=== PATIENT | female | born 1985 | race Hispanic/Latino ===

== ENCOUNTER 2022-07-17 08:18 | Emergency (ER) | payer OTHER ==
[2022-07-17] MEDS ORDERED: SODIUM CHLORIDE 0.9% 1000 ML 1,000 ML IV ONE (09:16)
[2022-07-17] MEDS ORDERED: ONDANSETRON 4 MG/2 ML INJ IV ONE (09:17)
[2022-07-17] MEDS ORDERED: MORPHINE 2 MG/1 ML INJ IM ONE (09:17)
--- NOTE | 2022-07-17 09:22 | Emergency Department Report ---
ED General Adult HPI - General Chief complaint: Nausea/Vomiting/Diarrhea Stated complaint: NAUSEA/VOMITING PUI?: No Time Seen by Provider: 07/17/22 09:04 Source: patient, EMS Mode of arrival: Stretcher Limitations: No Limitations - History of Present Illness Initial comments: 37-year-old female brought in by psychiatric facility with concerns of nausea and vomiting and also abdominal discomfort that radiates to the back. According to patient that this started last night. Patient states the abdominal discomfort is a sharp sensation that is constant. Patient denies dysuria. Patient said that she has a history of hypertension, kidney cancer which was removed, anxiety, panic attack, and also seizure which according to patient she is any intake elliptic medication. Patient denies alcohol use. Patient current denies any fever chill night sweat dizziness blurred vision lightheadedness headache tinnitus ear pain runny nose sore throat loss of taste or smell chest pain palpitation short of breath cough diarrhea constipation dysuria myalgia arthralgia new rash and heat or cold intolerance. - Related Data Allergies Allergy/AdvReac Type Severity Reaction Status Date / Time No Known Allergies Allergy Verified 07/17/22 08:22 ED Review of Systems ROS: Stated complaint: NAUSEA/VOMITING Other details as noted in HPI Comment: All other systems reviewed and negative Constitutional: no symptoms reported, see HPI Eyes: as per HPI ENT: as per HPI Respiratory: no symptoms reported, see HPI Cardiovascular: as per HPI Endocrine: no symptoms reported, see HPI Gastrointestinal: abdominal pain, nausea, vomiting. denies: diarrhea, con stipation, hematemesis, melena, hematochezia Genitourinary: as per HPI Musculoskeletal: as per HPI Skin: as per HPI Neurological: as per HPI Psychiatric: as per HPI Hematological/Lymphatic: as per HPI ED Past Medical Hx - Past Medical History Previous Medical History?: Yes Hx Hypertension: Yes Hx Psychiatric Treatment: Yes ED Physical Exam - General Limitations: No Limitations General appearance: alert, in no apparent distress - Head Head exam: Present: atraumatic, normocephalic, normal inspection - Eye Eye exam: Present: normal appearance, PERRL, EOMI Pupils: Present: normal accommodation - ENT ENT exam: Present: normal exam, mucous membranes moist - Neck Neck exam: Present: normal inspection, full ROM - Respiratory Respiratory exam: Present: normal lung sounds bilaterally - Cardiovascular Cardiovascular Exam: Present: regular rate, normal rhythm, normal heart sounds - GI/Abdominal GI/Abdominal exam: Present: soft, normal bowel sounds. Absent: distended, tenderness, guarding, rebound, rigid - Extremities Exam Extremities exam: Present: normal inspection, full ROM, normal capillary refill - Back Exam Back exam: Present: normal inspection, full ROM - Neurological Exam Neurological exam: Present: alert, oriented X3, CN II-XII intact - Psychiatric Psychiatric exam: Present: normal affect, normal mood - Skin Skin exam: Present: warm, dry, intact ED Course Vital Signs 07/17/22 07/17/22 08:19 12:58 Temperature 98.6 F Pulse Rate 73 89 Respiratory 14 18 Rate Blood Pressure 157/90 142/87 [Left] O2 Sat by Pulse 96 99 Oximetry ED Medical Decision Making - Lab Data Result diagrams: 07/17/22 09:22 07/17/22 09:22 Critical care attestation.: If time is entered above; I have spent that time in minutes in the direct care of this critically ill patient, excluding procedure time. ED Disposition Clinical Impression: Generalized abdominal discomfort, Elevated LFTs, Renal cyst, right Disposition: 01 HOME / SELF CARE / HOMELESS Is pt being admited?: No Does the pt Need Aspirin: No Condition: Stable Instructions: Abdominal Pain, Adult, [id number] Time of Disposition: 14:56
[2022-07-17 09:31] LABS: Hematocrit 34.8 % (30.3-42.9); Hemoglobin 11.6 gm/dl (10.1-14.3); Mean Corpuscular HGB Conc 34 % (30-34); Mean Corpuscular Volume 87 fl (79-97); Platelet Count 240 K/mm3 (140-440); Red Blood Count 3.99 M/mm3 (3.65-5.03)
[2022-07-17 09:58] LABS: Alanine Aminotransferase 159 units/L (7-56); Albumin 4.3 g/dL (3.9-5); BUN/Creatinine Ratio 17; Blood Urea Nitrogen 10 mg/dL (7-17); Calcium 9.5 mg/dL (8.4-10.2); Hemolysis Index 3
--- NOTE | 2022-07-17 11:58 | Cat Scan Report ---
CT ABDOMEN AND PELVIS WITH CONTRAST HISTORY: generalized abd pain radiates to back COMPARISON: None TECHNIQUE: Routine abdominal and pelvic CT exam performed following intravenous contrast administrat ion.. All CT scans at this location are performed using CT dose reduction for ALARA by means of autom ated exposure control. FINDINGS: CT ABDOMEN: Lung Bases: No significant abnormality. Liver: No significant abnormality. Biliary: No significant abnormality. Spleen: No significant abnormality. Unenlarged. Pancreas: No significant abnormality. Adrenals: No significant abnormality. Kidneys: There is a cluster of 4 to 5 mm stones in the upper pole of the left kidney with associated dilation of the upper left renal collecting system. There are also some small intrarenal stones in jun th lower poles of the kidneys. Simple 4 cm cyst in the posterior right kidney. Lymphatics: No lymphadenopathy. Vasculature: No significant abnormality. Bowel/Peritoneum: No significant abnormality. No free air. No free fluid. CT PELVIC: : No significant abnormality. Lymphatics: No lymphadenopathy. Osseous Structures: No aggressive appearing osseous lesions. Additional Findings: None IMPRESSION: 1. Bilateral intrarenal stones. Stones clustered in the upper left renal collecting system appear to be causing obstruction and dilation of the left upper pole calyces. Signer Name: Kurtis Wheat MD Signed: 07/17/2022 11:53 AM Workstation Name: [email or web address]
--- NOTE | 2022-07-17 14:48 | Ultrasound Report ---
LIMITED RUQ ABDOMINAL ULTRASOUND INDICATION: r abd pain; elevated lft.. COMPARISON: No relevant prior imaging study available. FINDINGS: Pancreas: Visualized portions show no significant abnormality. Abdominal Aorta: No significant abnormality. IVC: No significant abnormality. Liver: The liver measures 15 cm in length. No significant abnormality. Normal hepatopedal blood flow in the main portal vein. Gallbladder: No evidence for stones or sludge. The gallbladder wall measures 2 mm.. Bile ducts: No significant abnormality. Common bile duct measures 3 mm. Right kidney: A 5 cm cyst is noted in the inferior right kidney, otherwise unremarkable.. Free fluid: None. Additional Findings: None. IMPRESSION: Unremarkable liver and biliary system. Right renal cyst.. Signer Name: Jersey Martinez Jr, MD Signed: 07/17/2022 2:44 PM Workstation Name: [id number]
[2022-07-17 15:16] LABS: Amorphous Crystals,Urine Few; Mucus,Urine FEW /HPF; Renal Epithelial Cells,Urine <1 /LPF
[2022-07-17 15:20] LABS: Color,Urine Straw (Yellow)
[2022-07-17 15:23] LABS: HCG Qualitative,Urine Negative (Negative)
[2022-07-17] MEDS ORDERED: ONDANSETRON 4 MG/2 ML INJ IM ONE (15:31)
[2022-07-17 15:36] LABS: Amphetamine Screen,Urine PRESUMPTIVE NEGATIVE; Benzodiazepines Screen,Urine PRESUMPTIVE NEGATIVE; Cannabinoid Screen,Urine PRESUMPTIVE NEGATIVE; Cocaine Screen,Urine PRESUMPTIVE NEGATIVE; Methadone Screen,Urine PRESUMPTIVE NEGATIVE; Opiate Screen,Urine PRESUMPTIVE NEGATIVE
[2022-07-17 17:46] VITALS: BP 138/70
== END 2022-07-17 17:43 | disposition home or self-care (01) ==
LOC: ED 08:18
DX: N28.1 Cyst of kidney, acquired (principal); R74.01 Elevation of levels of liver transaminase levels; I10 Essential (primary) hypertension; Z79.899 Other long term (current) drug therapy
CPT/HCPCS: 36415; 74177; 76705; 80053; 80307; 81001; 81025; 83690; 83735; 85027; 96361; 96372; 96374; 99284; J2270; J2405; J7030; Q9967